=== PATIENT | male | born 1950 | race Caucasian/White ===

== ENCOUNTER 2017-01-10 09:22 | Day surgery (SDC) | payer MEDICARE, OTHER ==
[~2017-01-10 09:22] MED LIST: ACETAMINOPHEN 500 MG TABLET PO PRN; HYDROmorphone HCL 2 MG/ML VIAL IV PRN; MAG HYDROX/ALUMINUM HYD/SIMETH 30 ML UDC PO PRN; MAGNESIUM HYDROXIDE 30 ML UDC PO PRN; ONDANSETRON HCL/PF 2 MG/ML VIAL IV PRN; PROMETHAZINE HCL 25 MG in DEXTROSE 5 % IN WATER 50 ML IV PRN; RINGERS SOLUTION,LACTATED 1,000 ML IV PRN; ROPIVACAINE HCL/PF 40 MG in NORMAL SALINE 16 ML IJ PRN; ZOLPIDEM TARTRATE 5 MG TABLET PO PRN; ceFAZolin SODIUM 1 GM VIAL IV PRN; diphenhydrAMINE HCL 50 MG/ML VIAL IV PRN; oxyCODONE HCL/ACETAMINOPHEN 1 TAB TABLET PO PRN
--- OUTSIDE RECORDS SUMMARY | 2017-01-10 09:29 | XMS REPORT | Continuity of Care Document ---
:1950 Author Organization [facility] ([facility]) Address [place] [place] [address] Phone [phone] Care Team Providers Name Role Phone Leonardo Hurtado Primary Care Provider [phone] Source Comments This disclosure is being made pursuant to the Care Everywhere program, applicable federal and state laws, and may not contain all informaitonavailable regarding this patient.[facility] ([facility]) Active Allergies and Adverse Reactions Allergen Noted Date Severity Reactions Comments Penicillins 10/09/2012 OTHER Current Medications Prescription Sig. Disp. Refills Start Date End Date Status VIT A/VIT C/VIT Take by mouth. Active E/ZINC/COPPER (ICAPS AREDS PO) ASCORBATE CALCIUM Take by mouth Active (VITAMIN C PO) daily. ZINC PO Take by mouth Active daily. UBIDECARENONE/VITAMIN E Take by mouth. Active MIXED (COQ10 SG 100 PO) 50 mg daily aspirin, buffered 325 Take 325 mg by Active mg tablet mouth daily. vitamin E 400 unit Take 400 Units by Active capsule mouth daily. atorvastatin 40 mg Take 1 tablet (40 90 tablet 2 10/14/2016 Active tablet mg total) by mouth every evening. nitroglycerin Place 1 tablet 25 tablet 3 11/20/2016 Active (NITROSTAT) 0.4 mg SL (0.4 mg total) tablet under the tongue every 5 minutes as needed. 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 CARDIOVASCULAR PROCEDURES PHOTO LAB SPECIALIST: Cath (1. LVEF 55% with anterolateral hypokinesis, mild 2. Right dominant circulation. LMCA normal. LAD 80% proximal stenosis, 99% midvessel stenosis. LCX normal. RCA minor irregularities 3. Successful deployment of 3.0x12mm PROMUS MADIE prox and 3.0x28mm PROMUS MADIE mid LAD. 0% residual stenosis. TARI 3 flow. 4. IV ReoPro per protocol ) - 10/12/2013 History of coronary artery stent placement Hyperlipidemia Most Recent Encounters Date Type Specialty Providers Description 01/03/2017 Telephone Cardiac Ladan Hall MD Chief Comp: Medication Rehabilitation Question 11/19/2016 Refill Cardiac Ladan Hall MD Dx: Chest pain (Primary Dx) Rehabilitation 10/14/2016 Refill Cardiac Ladan Hall MD Dx: Pure Rehabilitation hypercholesterolemia (Primary Dx) Social History Tobacco Use Types Packs/Day Years Used Date Former Smoker Cigarettes 1.5 5 Quit: 10/27/1981 Smokeless Tobacco: Never Used Alcohol Use Drinks/Week oz/Week Comments Yes 2 Cans of beer Last Filed Vital Signs Vital Sign Reading Time Taken Blood Pressure 110/76 05/28/2016 12:54 PM CDT Pulse 62 05/28/2016 12:54 PM CDT Temperature - - Respiratory Rate - - Height 1.778 m (5' 10") 05/28/2016 12:54 PM CDT Weight 92.08 kg (203 lb) 05/28/2016 12:54 PM CDT Body Mass Index 29.13 05/28/2016 12:54 PM CDT Oxygen Saturation - - Plan of Care Date Type Specialty Providers Description 05/27/2017 Appointment Heart and Vascular Ladan Hall MD Chief Comp: Patient [address] [place] [address] Visit [phone] (Fax) Health Maintenance Due Date Last Done Comments HCV Screening 1950 Hepatitis B Vaccine (1 of 3 - Primary Series) 1950 Tdap Vaccine 1962 Lipid Disorder Screening 1969 Td Vaccine 1969 Colonoscopy 08/20/2001 Prostate Cancer Screening 2001 Zoster Vaccine 2011 Pneumococcal Vaccine (1 of 2 - PCV13) 2016 Influenza Vaccine: Seasonal (Season Ended) 2017 Results from Last 3 Months Not on file
[2017-01-10] MEDS ORDERED: RINGERS SOLUTION,LACTATED 1,000 ML IV ONE ×3 (09:45→10:40)
[2017-01-10] MEDS ORDERED: BUPIVACAINE HCL/EPINEPHRINE 10 ML VIAL IJ ONE (10:25)
[2017-01-10 12:03] VITALS: BP 133/77
--- NOTE | 2017-01-10 12:09 | OR ---
Operative Report - Dictated Report Narrative: Date: 01/10/2017 Physician: Stanley Morel M.D. Roofing Machine Operator: Blake Truong PA-C Preoperative diagnosis: Right Knee medial meniscus tear Postoperative diagnosis: Right Knee medial meniscus tear , chondral malacia medial femoral condyle, anterior medial plica Procedure: Right knee arthroscopy with partial medial meniscectomy, chondroplasty medial femoral condyle, excision of anterior medial plica Anesthesia: MAC Plus local Complications: None Estimated blood loss: Minimal Tourniquet time: None Specimens: None Retained implants: None Drains: None Indications: Mr. Olguin Is a 66 year-old male who has been followed in my clinic with complaints of knee pain consistent with suspected medial joint pathology. Physical exam and diagnostic imaging were consistent with these complaints and concern for medial meniscus pathology. Conservative measures have failed including, but not limited to, passage of time, activity modification, medications, and injections. The risks, benefits, and alternatives were discussed in clinic. The risks being , bleeding, infection, blood clots, nerve, tendon, ligament, blood vessel injury, persistent pain, arthrosis, need for additional procedures, and persistent symptoms. Consent was obtained in the clinic. Procedure: After marking the correct extremity in the preoperative holding area, a timeout was performed in the operating room. IV antibiotics consisting of Ancef were administered prior to the procedure. A well-padded tourniquet was applied to the operative upper thigh. The leg was prepped and draped in a standard sterile fashion. 0.5% Marcaine with epinephrine was infused into the projected portal sites as well as the intra-articular space. A chiquita incision was made for inferior lateral portal. A blunt trocar and cannula was introduced into the knee. The suprapatellar pouch revealed no pathology. The medial patella facet showed grade 2 changes. The lateral patella facet showed grade 2 changes. The trochlea showed grade 2 changes. The medial gutter revealed and abrading anterior medial plica which extended from the medial joint line to the patella. This resulted in abrasion over the medial distal femur. There is a small medial osteophyte. The medial joint space was then entered utilizing a lateral post and valgus stress. A spinal needle was utilized for guidance into placement of an anterior medial portal. This was placed just superior to the medial meniscus ensuring that we could reach the posterior aspect of the medial joint space. A chiquita incision was made in the site, and the probe was introduced to the knee. The medial joint space was examined, and the medial femoral condyle showed grade 2 to focal grade 3 change with loose chondral edges. There was a focal nearly grade 4 cystic type changes over the distal femur weightbearing surface when the knee was in full extension which is approximately 5-7 mm in diameter. It did not appear to be unstable. This was consistent with his MRI findings. The medial tibial plateau showed grade 1 change. The medial meniscus had a complex tear of the posterior one half of the meniscus involving approximately 50% of the depth over approximately 50% the circumference. The notch was then examined, and the ACL was noted to be intact. The PCL was noted to be intact. The lateral joint space was then examined using a varus force in the figure 4 position. Lateral femoral condyle showed no arthrosis. Lateral tibial plateau showed no arthrosis. The lateral meniscus showed no tear. The lateral gutter showed no pathology. Having identified the surgical pathology, a series of biters and eben were utilized in order to debride the posterior one half of the medial meniscus down to a depth of approximately 50%. The shaver was also utilized in order to debride the loose chondral edges over the medial femoral condyle as well as the anterior medial plica. Once it was felt that we adequately addressed the pathology, the knee was thoroughly irrigated. The fluid was evacuated ensuring that we have removed all meniscal, chondral, and any other loose bodies. A final evaluation of the joint showed no additional pathology. The fluid was then evacuated of the knee, and the trocar and camera were removed from the joint. The wounds were closed with interrupted nylon after placing 20 mL of 0.2 % ropivacaine into the joint. Dressings consisting of Xeroform, 4 x 4, ABD, soft roll, and an Jw were applied. All sponge, needle, blade, and instrument counts were correct prior to closing the wounds. The patient was awoken and transferred to the postanesthesia care unit in stable condition.
[2017-01-10] MEDS ORDERED: SENNOSIDES/DOCUSATE SODIUM 1 TAB TABLET PO SCH (21:00)
== END 2017-01-10 09:23 | disposition home or self-care (01) ==
LOC: AMB 09:22
PROVIDERS: ATTEND Orthopaedic Surgery
PROC: 0SBC4ZZ Excision of Right Knee Joint, Percutaneous Endoscopic Approach (ICD-10-PCS; principal; 2017-01-10 10:15)
DX: M23.203 Derangement of unspecified medial meniscus due to old tear or injury, right knee (principal); M94.261 Chondromalacia, right knee; M67.51 Plica syndrome, right knee; E78.5 Hyperlipidemia, unspecified; Z87.891 Personal history of nicotine dependence; Z68.28 Body mass index [BMI] 28.0-28.9, adult